=== PATIENT | female | born 1970 | race Caucasian/White ===

== ENCOUNTER 2016-12-03 09:22 | Emergency (ER) | payer SELFPAY ==
[~2016-12-03] VITALS: Wt 117.9 kg
[~2016-12-03 09:22] MED LIST: ANAPROX DS550 MG PO; CLARITIN-D 24 H1 TAB PO; CORTISPORIN SUS10 ML OT; MOTRIN800 MG PO; ROBITUSSIN AC 10 MG/ PO; TESSALON PERLE100 M1 PO; VICODIN 5/500 505 MG PO; ZITHROMAX Z PA250 MG PO
[2016-12-03 09:28] VITALS: BP 154/96
== END 2016-12-03 10:46 | disposition home or self-care (01) ==
LOC: ED 09:22
DX: I83.028 Varicose veins of left lower extremity with ulcer other part of lower leg (principal); L97.829 Non-pressure chronic ulcer of other part of left lower leg with unspecified severity; Z88.8 Allergy status to other drugs, medicaments and biological substances

== ENCOUNTER 2018-09-12 14:33 | Emergency (ER) | payer OTHER ==
[~2018-09-12] VITALS: Ht 175.2 cm; Wt 120.7 kg
[2018-09-12] MEDS ORDERED: DOXYCYCLINE100 MG PO (16:10)
[2018-09-12] MEDS ORDERED: ANTIBIOTIC28.4 GM T (16:10)
[2018-09-12 16:21] VITALS: BP 156/99
== END 2018-09-12 16:22 | disposition home or self-care (01) ==
LOC: ED 14:33
DX: I83.028 Varicose veins of left lower extremity with ulcer other part of lower leg (principal); I10 Essential (primary) hypertension; Z88.8 Allergy status to other drugs, medicaments and biological substances

== ENCOUNTER 2019-07-04 09:52 | Emergency (ER) | payer OTHER ==
[~2019-07-04] VITALS: Ht 175.2 cm; Wt 117.9 kg
[~2019-07-04 09:52] MED LIST changes: +ANTIBIOTIC28.4 GM T; +DOXYCYCLINE100 MG PO
[2019-07-04 09:59] VITALS: BP 140/99
[2019-07-04] MEDS ORDERED: CEPHALEXIN500 M1 PO (10:43)
== END 2019-07-04 11:24 | disposition home or self-care (01) ==
LOC: ED 09:52
DX: N75.0 Cyst of Bartholin's gland (principal); I10 Essential (primary) hypertension; Z88.8 Allergy status to other drugs, medicaments and biological substances; Z79.2 Long term (current) use of antibiotics

== ENCOUNTER 2019-07-05 10:13 | Emergency (ER) | payer OTHER ==
[~2019-07-05] VITALS: Ht 175.2 cm; Wt 117.9 kg
[~2019-07-05 10:13] MED LIST changes: +CEPHALEXIN500 M1 PO
[2019-07-05 11:15] LABS: BASO # 0.1 10*3/uL (0.0-0.1); BASO % 0.3 % (0.0-1.0); EOS # 0.1 10*3/uL (0.0-0.4); EOS % 0.9 % (1.0-4.0); HEMATOCRIT 36.2 % (37.0-47.0); HEMOGLOBIN 11.9 g/dl (12.0-16.0); LYMPH # 1.4 10*3/uL (1.3-4.4); LYMPH % 9.1 % (27.0-41.0); MEAN CELL VOLUME 95.3 fl (81.0-99.0); MEAN CORPUSCULAR HGB 31.3 pg (27.0-31.0); MEAN CORPUSCULAR HGB CONC 32.9 g/dl (33.0-37.0); MEAN PLATELET VOLUME 9.7 fl (9.6-12.3); MONO % 6.8 % (3.0-9.0); NEUT # 12.3 10*3/uL (2.3-7.9); NEUT % 82.3 % (47.0-73.0); PLATELET COUNT AUTOMATED 240 10*3/uL (130-400); RED CELL DISTRI WIDTH 13.2 % (0-14.5)
[2019-07-05 11:31] LABS: ALBUMIN 3.1 gm/dl (3.1-4.5); ALKALINE PHOSPHATASE 92 U/L (45-117); BUN 10 mg/dl (7-24); CHLORIDE 105 mmol/L (98-107); CREATININE 0.77 mg/dL (0.55-1.02); POTASSIUM 3.6 mmol/L (3.5-5.1); SGOT/AST 13 IU/L (3-35); SGPT/ALT 24 U/L (12-78); SODIUM 138 mmol/L (136-145); TOTAL PROTEIN 7.4 gm/dL (6.4-8.2)
[2019-07-05 13:38] LABS: BILIRUBIN NEGATIVE (NEGATIVE); BLOOD 2+ (NEGATIVE); CLARITY CLEAR (CLEAR); COLOR YELLOW (YELLOW); GLUCOSE NEGATIVE (NEGATIVE); KETONE NEGATIVE (NEGATIVE); LEUKO ESTERASE TRACE (NEGATIVE); NITRITE NEGATIVE (NEGATIVE); PH 5.5 (5.0-9.0); SPECIFIC GRAVITY <= 1.005 (1.005-1.030); UROBILINOGEN 0.2 E.U./dl (0.2-1.0)
[2019-07-05 13:49] LABS: BACTERIA TRACE; MUCOUS 1+
[2019-07-05 16:17] VITALS: BP 119/72
== END 2019-07-05 16:58 | disposition short-term general hospital (02) ==
LOC: ED 10:13
PROVIDERS: Nurse Practitioner Family
DX: A41.9 Sepsis, unspecified organism (principal); N75.0 Cyst of Bartholin's gland; N76.2 Acute vulvitis; I10 Essential (primary) hypertension

== ENCOUNTER 2023-10-02 12:44 | Emergency (ER) | payer SELFPAY ==
[~2023-10-02] VITALS: Ht 175.2 cm; Wt 113.4 kg
[2023-10-02 12:51] VITALS: BP 157/93
[2023-10-02 13:28] LABS: EOS # 0.2 10*3/uL (0.0-0.4); EOS % 2.8 % (1.0-4.0); LYMPH # 1.5 10*3/uL (1.3-4.4); WHITE BLOOD COUNT 6.7 10*3/uL (4.8-10.8)
[2023-10-02 13:37] LABS: BASO % 0.4 % (0.0-1.0); MEAN CELL VOLUME 95.2 fl (81.0-99.0); MEAN CORPUSCULAR HGB 31.4 pg (27.0-31.0); MEAN PLATELET VOLUME 9.5 fl (9.6-12.3); MONO # 0.6 10*3/uL (0.1-1.0); MONO % 9.1 % (3.0-9.0); NEUT # 4.4 10*3/uL (2.3-7.9); NEUT % 65.6 % (47.0-73.0); PLATELET COUNT AUTOMATED 245 10*3/uL (130-400); RED CELL DISTRI WIDTH 12.7 % (0-14.5)
[2023-10-02 13:40] LABS: BUN 9 mg/dl (9-23); CHLORIDE 103 mmol/L (98-107)
== END 2023-10-02 14:30 | disposition home or self-care (01) ==
LOC: ED 12:44
PROVIDERS: Nurse Practitioner Family
DX: R53.1 Weakness (principal); R20.0 Anesthesia of skin; Z88.8 Allergy status to other drugs, medicaments and biological substances; Z98.890 Other specified postprocedural states; Z98.51 Tubal ligation status

== ENCOUNTER 2023-10-02 20:17 | Inpatient (IN) | payer SELFPAY ==
[~2023-10-02] VITALS: Ht 175.2 cm; Wt 118.5 kg
[2023-10-02 20:21] VITALS: BP 148/83
[2023-10-02] MEDS ORDERED: IOHEXOL 350 MG/ML 100 ML VIAL IV ONE (20:30)
[2023-10-02] MEDS ORDERED: SODIUM CHLORIDE 0.9% 100 ML BAG IV ONE (20:30)
[2023-10-03] MEDS ORDERED: fentaNYL CITRATE/PF 50 MCG/ML SYRINGE IV ONE (00:25)
[2023-10-03 00:44] VITALS: BP 138/72
[2023-10-03] MEDS ORDERED: MORPHINE Sulfate 2 MG/ML SYR IV PRN (00:55)
[2023-10-03] MEDS ORDERED: TEMAZEPAM 15 MG CAP PO PRN (01:05)
[2023-10-03] MEDS ORDERED: Ondansetron Hydrochloride 4 MG/2 ML VIAL IV PRN (01:05)
[2023-10-03] MEDS ORDERED: BISACODYL 5 MG TAB PO PRN (01:05)
[2023-10-03] MEDS ORDERED: ACETAMINOPHEN 325 MG TAB PO PRN (01:05)
[2023-10-03] MEDS ORDERED: Acetaminophen/Hydrocodone 5 MG/325 MG TABLET PO PRN (01:05)
[2023-10-03] MEDS ORDERED: BISACODYL 10 MG SUPP R PRN (01:05)
[2023-10-03] MEDS ORDERED: ACETAMINOPHEN 650 MG SUPP R PRN (01:05)
[2023-10-03] MEDS ORDERED: Magnesium Hydroxide 30 ML UDC PO PRN (01:05)
[2023-10-03] MEDS ORDERED: Doxycycline Hyclate 100 MG in SODIUM CHLORIDE 0.9% 250 ML IV SCH ×2 (01:28→14:00)
[2023-10-03 04:05] VITALS: BP 141/80
[2023-10-03 06:13] LABS: BUN 9 mg/dl (9-23); CHLORIDE 103 mmol/L (98-107); CHOLESTEROL 128 mg/dL (<200); LDL CHOLESTEROL 55 mg/dL (9-159); POTASSIUM 3.8 mmol/L (3.4-5.1); TRIGLYCERIDES 65 mg/dl (<150)
[2023-10-03 06:23] LABS: BASO % 0.3 % (0.0-1.0); EOS % 0.6 % (1.0-4.0); LYMPH # 1.1 10*3/uL (1.3-4.4); LYMPH % 18.2 % (27.0-41.0); MEAN CELL VOLUME 96.4 fl (81.0-99.0); MEAN CORPUSCULAR HGB 31.5 pg (27.0-31.0); MEAN CORPUSCULAR HGB CONC 32.7 g/dl (33.0-37.0); MEAN PLATELET VOLUME 9.9 fl (9.6-12.3); MONO # 0.5 10*3/uL (0.1-1.0); MONO % 8.3 % (3.0-9.0); NEUT # 4.5 10*3/uL (2.3-7.9); NEUT % 72.3 % (47.0-73.0); PLATELET COUNT AUTOMATED 214 10*3/uL (130-400); RED BLOOD COUNT 3.84 10*6/uL (4.10-5.10); RED CELL DISTRI WIDTH 12.8 % (0-14.5); WHITE BLOOD COUNT 6.2 10*3/uL (4.8-10.8)
[2023-10-03 07:01] LABS: ACT PARTIAL THROMBO TIME 26.5 SECONDS (20.0-32.1)
[2023-10-03] MEDS ORDERED: Doxycycline Hyclate 100 MG VIAL IV ONE (07:37)
[2023-10-03] MEDS ORDERED: SODIUM CHLORIDE 0.9% 250 ML BAG IV ONE (07:37)
[2023-10-03 07:40] LABS: VITAMIN D, 25-HYDROXY 25.7 ng/mL (30-100)
[2023-10-03 08:00] VITALS: BP 142/77
[2023-10-03] MEDS ORDERED: Vitamin D 1,000 IU TAB (25 MCG) PO SCH (10:00)
[2023-10-03] MEDS ORDERED: Enoxaparin Sodium 40 MG/0.4 ML SYR SC SCH (10:00)
[2023-10-03 12:00] VITALS: BP 131/70
[2023-10-03 16:00] VITALS: BP 135/69
[2023-10-03] MEDS ORDERED: IOHEXOL 300 MG/ML 100 ML VIAL IV ONE (18:30)
[2023-10-03 20:00] VITALS: BP 129/71
[2023-10-03] MEDS ORDERED: SODIUM CHLORIDE 0.9% IV ONE (21:00)
[2023-10-03] MEDS ORDERED: DEXAMETHASONE SODIUM PHOSPHA IV ONE (21:00)
[2023-10-04] VITALS: BP 142/74
[2023-10-04 05:50] LABS: BUN 9 mg/dl (9-23); CHLORIDE 104 mmol/L (98-107); POTASSIUM 3.9 mmol/L (3.4-5.1)
[2023-10-04 06:41] LABS: BASO % 0.1 % (0.0-1.0); HEMATOCRIT 39.8 % (37.0-47.0); LYMPH # 0.6 10*3/uL (1.3-4.4); LYMPH % 7.5 % (27.0-41.0); MEAN CELL VOLUME 96.1 fl (81.0-99.0); MEAN CORPUSCULAR HGB 31.2 pg (27.0-31.0); MEAN CORPUSCULAR HGB CONC 32.4 g/dl (33.0-37.0); MEAN PLATELET VOLUME 9.9 fl (9.6-12.3); MONO # 0.2 10*3/uL (0.1-1.0); MONO % 2.3 % (3.0-9.0); NEUT # 6.5 10*3/uL (2.3-7.9); PLATELET COUNT AUTOMATED 233 10*3/uL (130-400); RED BLOOD COUNT 4.14 10*6/uL (4.10-5.10); RED CELL DISTRI WIDTH 12.5 % (0-14.5); WHITE BLOOD COUNT 7.3 10*3/uL (4.8-10.8)
[2023-10-04] MEDS ORDERED: Dexamethasone Sodium Phospha 4 MG IV SCH (22:00)
[2023-10-04] MEDS ORDERED: DEXAMETHASONE 4 MG TAB PO SCH (22:00)
[2023-10-04] MEDS ORDERED: Dexamethasone Sodium Phospha 4 MG/ML VIAL IV SCH (22:00)
== END 2023-10-04 08:07 | disposition short-term general hospital (02) | DRG 598 ==
LOC: ED 20:17 → 5E 10-03 00:30 → EDHOLD 10-03 00:30 → 5E 10-03 02:00
PROVIDERS: Family Medicine; Student in an Organized Health Care Education/Training Program; ADMIT Internal Medicine; ATTEND Internal Medicine
DX: C50.911 Malignant neoplasm of unspecified site of right female breast (principal); E87.1 Hypo-osmolality and hyponatremia; L03.116 Cellulitis of left lower limb; L97.821 Non-pressure chronic ulcer of other part of left lower leg limited to breakdown of skin; G95.29 Other cord compression; E55.9 Vitamin D deficiency, unspecified; N63.15 Unspecified lump in the right breast, overlapping quadrants; N64.59 Other signs and symptoms in breast; R59.0 Localized enlarged lymph nodes; Z88.8 Allergy status to other drugs, medicaments and biological substances; Z79.899 Other long term (current) drug therapy